=== PATIENT | female | born 1980 | race Caucasian/White ===

== ENCOUNTER 2019-05-20 11:08 | Observation (INO) | payer OTHER ==
[2019-05-20] MEDS ORDERED: Naproxen TAB* 250 MG ONE (12:34)
[2019-05-20] MEDS ORDERED: Scopolamine 1.5 mg* PATCH ONE (12:34)
[2019-05-20] MEDS ORDERED: Ondansetron INJ* 2 MG/ML VIAL ONE ×2 (12:34→15:55)
[2019-05-20] MEDS ORDERED: LORazepam TAB(*) 1 MG ONE (12:35)
[2019-05-20] MEDS ORDERED: oxyCODONE SR TAB(*) 10 MG TAB.SR ONE (12:35)
[2019-05-20] MEDS ORDERED: Clindamycin 900 MG/D5W BAG(*) 900 MG/50 ML BAG IVPB ONE (13:00)
[2019-05-20] MEDS ORDERED: Clindamycin 900 MG IVPREMIX(* 900 MG/50 ML SDV IV ONE (13:00)
[2019-05-20] MEDS ORDERED: Heparin 2 UNITS/ML IVPREMIX* 3,000 UNIT/1,500 ML BAG IV ONE (13:15)
[2019-05-20] MEDS ORDERED: Lidocaine 1% INJ* 10 MG/ML 30 ML SDV ONE (13:15)
[2019-05-20] MEDS ORDERED: Iohexol 350 (CONTRAST) 200 ML MDV IV ONE (13:15)
[2019-05-20] MEDS ORDERED: Heparin(*) 1000 UNIT/ML 10 ML VIAL CATH LAB IV ONE (13:26)
[2019-05-20] MEDS ORDERED: VERAPAMIL 2.5 MG/ML 2 ML VIAL ** 5 mg/2 ml ONE (13:26)
[2019-05-20] MEDS ORDERED: nitroGLYCERIN DRIP* 25,000 MCG/250 ML BTL ONE (13:26)
[2019-05-20] MEDS ORDERED: fentaNYL* 50 MCG/ML 2 ML VIAL (100 MCG VIAL) ONE ×3 (13:34→15:29)
[2019-05-20] MEDS ORDERED: Naloxone* 0.4 MG/ML 1 ML VIAL ONE (13:34)
[2019-05-20] MEDS ORDERED: Midazolam* 1 MG/ML 5 ML VIAL (5 MG) ONE (13:34)
[2019-05-20] MEDS ORDERED: Flumazenil* 0.1 MG/ML 5 ML MDV ONE (13:34)
[2019-05-20] MEDS ORDERED: Ketorolac INJ* 30 MG/ML 1 ML VIAL ONE ×3 (13:39→15:41)
[2019-05-20] MEDS ORDERED: HYDROmorphone PCA* 20 MG/20 ML PCA.SYRING PCA SCH (15:00)
[2019-05-20] MEDS ORDERED: HYDROmorphone PCA* 20 MG/20 ML PCA.SYRING ONE (15:46)
[2019-05-20] MEDS ORDERED: Ondansetron INJ* 2 MG/ML VIAL IV PRN (17:54)
[2019-05-20] MEDS ORDERED: Acetaminophen TAB* 325 MG PO PRN (17:54)
[2019-05-20] MEDS ORDERED: Lorazepam PYXIS KEY PRN (17:59)
[2019-05-20] MEDS ORDERED: Albuterol 2.5 MG/3 ML NEB.SOL* (0.083%) INH PRN (18:10)
[2019-05-20] MEDS ORDERED: NS 0.9% @ 50 MLS/HR IV SCH (19:30)
[2019-05-20] MEDS ORDERED: HYDROmorphone INJ1* 1 MG/ML SYRINGE IV SLOW PU PRN (19:51)
[2019-05-20] MEDS ORDERED: DOXYcycline IV* 100 MG in NS 0.9% 250 ML* 250 ML IVPB ONE (20:00)
[2019-05-20] MEDS: Ondansetron INJ* 2 MG/ML VIAL IV SCH (20:09)
[2019-05-20] MEDS: Ketorolac INJ* 15 MG/ML 1 ML VIAL IV PUSH SCH (20:10)
[2019-05-20] MEDS: LORazepam INJ* 2 MG/ML 1 ML VIAL IV PUSH SCH (20:21)
[2019-05-20] MEDS ORDERED: guanFACINE TAB* 1 MG PO SCH (21:00)
--- NOTE | 2019-05-20 23:55 | HP ---
CC: Dr. Elijah Salinas; Dr. Yoni Hoff * ADMISSION HISTORY AND PHYSICAL: DATE OF ADMISSION: 05/20/19 PRIMARY CARE PROVIDER: Dr. Elijah Salinas. MY ATTENDING WHILE IN THE HOSPITAL: Dr. Yecenia Jackson.* (DICTATED BY ANJEL BARAJAS) INTERVENTIONAL RADIOLOGIST: Dr. Yoni Hoff. CHIEF COMPLAINT: Uterine fibroid embolization. HISTORY OF PRESENT ILLNESS: Ms. Guzmán is a 38-year-old female with a past medical history significant for uterine fibroids, mild intermittent asthma, and endometritis, who is currently postoperative for a large uterine fibroid embolization. The patient was admitted and examined in the PACU. The patient is having severe pain, which she rates at 9/10 from her upper abdomen down to her symphysis pubis. She rates this as an aching pain and it is worse in certain spots in her abdomen, but is present all over. She denies fever, chills , chest pain, or shortness of breath. The patient had some nausea, vomiting, and some dizziness. The patient denies recent illnesses, diarrhea, or upper respiratory infection. The patient claims that she only drinks 2 drinks a week , though other reports put this at 5th of vodka every week. The patient was recently diagnosed with endometritis and prescribed doxycycline, which she is not started taking yet. The patient has moderate response to [employer], but is still in significant pain. [employer] brings her pain only down to 8/10. PAST MEDICAL HISTORY: Uterine fibroids, menometrorrhagia, endometritis, and intermittent asthma. PAST SURGICAL HISTORY: Ankle surgery. MEDICATIONS ON ADMISSION: 1. Multivitamin. 2. Guanfacine 1 mg p.o. at bedtime. 3. Dextroamphetamine/Amphetamine 1 cap p.o. daily. 3. Topiramate 50 mg p.o. b.i.d. 4. Epinephrine 0.3 mg IM once as needed for anaphylaxis. ALLERGIES: SULFA ANTIBIOTICS, wasp stings. FAMILY HISTORY: The patient's father is alive and has Parkinson's disease. The patient's mother had endometriosis and immune hyperplasia of the spleen around the same age as her daughter is now. SOCIAL HISTORY: The patient drinks occasional alcohol, again the amount of this differs, but varies between 5th of vodka and 2 drinks weekly. The patient smokes occasional marijuana and smokes approximately 4 cigarettes a day and has done so since the age of 16, she has recently cut down quite a bit. 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 The patient currently lives with her father. The patient's surrogate decision maker would be her mother. REVIEW OF SYSTEMS: A 14-point review of systems was reviewed and is negative except as above in the HPI. PHYSICAL EXAMINATION GENERAL: The patient is a 38-year-old female, who appears stated age, sitting in the bed, writhing in pain. VITAL SIGNS: At the time of evaluation, temperature 97.9, pulse rate 76, respiratory rate 18, oxygen saturation 98% on room air, blood pressure 160/120. HEENT: Head is normocephalic and atraumatic. Sclerae are anicteric. No conjunctival injection. Nasal mucosa moist. Oral mucosa moist. No pharyngeal erythema, discharge or exudate. NECK: Supple, nontender. No lymphadenopathy. No carotid bruit auscultated. No JVD. RESPIRATORY: Clear to auscultation bilaterally. No wheezes, rales, or rhonchi. Good air exchange bilaterally. CARDIAC: Regular rate and rhythm. No clicks, murmurs, gallops or rubs. Pulses 2+ in the bilateral dorsalis pedis, posterior tibial, and radial areas. ABDOMEN: Soft, tender to palpation throughout. No rebound or guarding. Bowel sounds present in all 4 quadrants. GENITOURINARY: Suprapubic tenderness present. No CVA tenderness. Vaginal exam deferred. SKIN: Left radial arterial puncture site without bleeding. NEUROLOGIC: Cranial nerves II through XII intact. No focal deficits. Alert and oriented x3. PSYCHIATRIC: Pleasant, cooperative. DIAGNOSTIC STUDIES/LAB DATA: Preoperative Lab Work: White blood cell count 10.8, hemoglobin 13.1, platelet count 146. INR 0.8, APTT 31.1. Sodium 138, potassium 3.7, chloride 107, carbon dioxide 23, anion gap 8, BUN 12, creatinine 0.78, glucose 105, calcium 9.2. ASSESSMENT AND PLAN: Impression: Ms. Guzmán is a 38-year-old female with a past medical history significant for uterine fibroids and asthma, who is currently status post uterine fibroid embolization and is in significant pain. 1. Uterine fibroid embolization. The patient will be co-managed with Dr. Yoni Hoff. The patient currently uses [employer] and 2 mg Dilaudid every 2 hours for breakthrough pain. The patient will also be given Toradol for her pain as well as Ativan for her pain and possible withdrawal syndrome. The patient will have nausea controlled with Zofran and we will add Compazine if needed. The patient had endometritis and has been covered with clindamycin by Dr. Yoni Hoff and then will have doxycycline per her outpatient provider's recommendation to cover for additional gram-negative organisms. 2. Mild intermittent asthma. PRN albuterol. 3. Possible alcohol abuse. It is very unlikely based on the patient's alcohol usage that she has withdrawal from alcohol; however, Ativan may help with her abdominal pain per Dr. Hoff and it will be given to obviate the chance of withdrawal syndrome. 4. FEN. The patient will have regular unrestricted diet when tolerated. The patient is currently hypertensive and does not require fluids. 5. DVT prophylaxis. SCDs. 6. Disposition. The patient will be admitted for observation. TIME SPENT: Approximately 60 minutes was spent on this admission, 30 of which was spent [id number] with the patient obtaining history and physical and discussing treatment plan. This plan was discussed with my attending, Dr. Yecenia Jackson, and she is in agreement. ANJEL BARAJAS [id number]/CPS #: [id number] MTDD
[2019-05-21] MEDS: Topiramate TAB(*) 25 MG PO SCH ×2 (01:15→09:18)
[2019-05-21] MEDS: Ondansetron INJ* 2 MG/ML VIAL IV SCH ×2 (03:27→09:07)
[2019-05-21] MEDS: Ketorolac INJ* 15 MG/ML 1 ML VIAL IV PUSH SCH ×2 (03:27→09:06)
[2019-05-21] MEDS: LORazepam INJ* 2 MG/ML 1 ML VIAL IV PUSH SCH (04:15)
[2019-05-21 07:52] VITALS: BP 115/68
--- NOTE | 2019-05-21 08:13 | PN ---
Progress Note - Progress Note Date of Service: 05/21/19 SOAP: Subjective: No emesis overnight. "Mild" episodes of nausea, but taking PO fluids and fruit overnight. + void. Pain ranges from 2/10-6/10 + Ambulating independently. Objective: Selected Entries 05/21/19 07:47 Temperature 98.3 F Pulse Rate 56 Respiratory 16 Rate Blood Pressure 115/68 (mmHg) Blood Pressure 83 Mean O2 Sat by Pulse 98 Oximetry NAD, AAO x 3 Left radial arteriotomy site is soft, NT with small amount of dry blood beneath Tegaderm 2+ pulse at left radial Motor function of left hand and wrist is grossly intact Sensation intact at left hand radial, median and ulnar nerve dermatomes Minimal tenderness with palpation over midline suprapubic area. No rebound. No guarding. Assessment: 38 YOF POD #1 s/p Uterine Fibroid Arterial Embolization from a left radial arteriotomy. Pain and nausea are well controlled. Plan: 1. Camp breakfast tray. 2. Transition IV to PO medications. 3. Encourage ambulation. 4. Discharge medications will include: Toradol 10 mg PO Q 6 hours x 3 days (Dispense #15 with one refill) AFTER Toradol is complete: Ibuprofen 400 mg PO Q 6 hours OR Naprosyn 225 mg PO Q 8 hours for 3-5 days (do not take both) [place] 5/325, take 1 or 2 tablets by mouth Q 6 hours PRN breakthrough pain ( Dispense #40) Zofran 4 mg PO Q 6 hours x 7 days (Dispense #30 with one refill) Scopolamine 1.5 mg transdermal to mastoid process. On 05/23/19 at 900 AM, remove current patch, replace with new patch and wear x 3 days. Drink one cup of laxative tea daily (For example, "Smooth Move") for one week.
[2019-05-21] MEDS ORDERED: HYDROcodone/ACETAMIN 5-325 MG* 1 TAB PO PRN (08:33)
[2019-05-21] MEDS ORDERED: Ketorolac TAB * 10 MG TAB PO SCH (09:00)
[2019-05-21] MEDS ORDERED: Prenatal Vitamin TAB PO SCH (09:00)
[2019-05-21] MEDS ORDERED: DOXYcycline CAP(*) 100 MG PO SCH (09:00)
[2019-05-21] MEDS ORDERED: Amphetamine/Dextroamph ER(NF) 10 MG CAP.ER PO SCH (09:00)
[2019-05-21] MEDS ORDERED: Ondansetron TAB* 4 MG PO SCH (09:00)
[2019-05-21] MEDS ORDERED: LORazepam TAB(*) 1 MG PO SCH (12:00)
--- NOTE | 2019-05-21 23:58 | DS ---
CC: Dr. Elijah Salinas; Dr. Yoni Hoff * DISCHARGE SUMMARY: DATE OF ADMISSION: 05/20/19 DATE OF DISCHARGE: 05/21/19 PRIMARY CARE PROVIDER: Dr. Elijah Salinas MY ATTENDING WHILE IN THE HOSPITAL: Dr. Yecenia Jackson.* (DICTATED BY ANJEL BARAJAS) PRIMARY DISCHARGE DIAGNOSIS: Uterine fibroid embolization. SECONDARY DISCHARGE DIAGNOSES: 1. Menometrorrhagia. 2. Endometritis 3. Mild intermittent asthma. STUDIES DONE WHILE IN THE HOSPITAL: None. MEDICATIONS AT DISCHARGE: 1. Multivitamin 1 tablet daily. 2. Guanfacine 1 mg p.o. at bedtime. 3. Dextroamphetamine/amphetamine 10 mg 1 cap p.o. daily. 3. Topiramate 50 mg p.o. b.i.d. 4. Epinephrine 0.3 mg IJ once as needed for anaphylaxis. 5. Doxycycline 100 mg p.o. b.i.d. 6. Hydrocodone/acetaminophen 5/325 one to two tabs p.o. q. 6 hours as needed x 40 tabs. 7. Toradol 10 mg p.o. q.6 hours x15 tabs followed by ibuprofen 400 mg q. 6 hours as needed for pain. 8. Zofran 4 mg p.o. q.6 hours x7 days. 9. Scopolamine 1 patch q.72 hours x1. 10. Lorazepam 1 mg p.o. q.6 hours as needed for agitation or pain. New medication at discharge 1. [place]. 2. Toradol. 3. Zofran. 4. Scopolamine. 5. Lorazepam. Medications discontinued at discharge: None. HOSPITAL COURSE: This is a brief summary of the patient's presentation. For more details, please see history and physical from this author on 05/20/19. In brief, the patient is a 38-year-old female who had a history of painful uterine fibroids with heavy painful periods, who underwent an elective uterine fibroid embolization on 05/20/19. The patient's procedure went uneventfully. The patient was diagnosed with endometritis before her admission and was prescribed doxycycline which she did not take any doses of. The patient initially had a severe amount of pain which was controlled with [employer], Toradol, and diminished quickly. The patient was given IV doxycycline; when she was able to tolerate oral medication she was transitioned to oral doxycycline, oral pain medications , and had significant improvement in her pain on the morning of 05/21/19. The patient was continued on her home medications. The patient's pain was approximately 2 to 6 depending on her activity level. On 05/21/19 in the afternoon, the patient had no bloody or foul smelling vaginal discharge. She was given clindamycin. The patient remained stable and amenable for discharge and cleared for discharge by Dr. Yoni Hoff on 05/21/19. PHYSICAL EXAMINATION ON DISCHARGE: General: The patient is a 38-year-old female who appears her stated age and sitting comfortably in bed, in no acute distress. Vital Signs: Temperature 98.3, pulse rate 66, respiratory rate 16, oxygen saturation 90% on room air, and blood pressure 115/68. HEENT: Head: Normocephalic and atraumatic. Sclerae anicteric. No conjunctival injection. Nasal mucosa moist. Oral mucosa moist. No pharyngeal erythema, discharge, or exudate. Neck: Supple and nontender. No lymphadenopathy. No carotid bruit auscultated. No JVD. Cardiac: Regular rate and rhythm. No clicks, murmurs, gallops, or rubs. Pulses 2+ in the bilateral dorsalis pedis, posterior tibialis and radial areas. Respiratory: Clear to auscultation bilaterally. No wheezes, rales, or rhonchi. Good air exchange bilaterally. Abdomen: Soft. Tender to palpation in the bilateral lower quadrants. No rebound or guarding. Genitourinary: No suprapubic or CVA tenderness. Rectal exam not done at this time. Neuro: Cranial nerves II through XII intact. No focal deficits. Alert and oriented x3. Psychiatric: Pleasant and cooperative. DISCHARGE PLAN: The patient will be discharged to home. The patient should follow medications regimen as above, which detailed medication instructions have been included with her discharge pocket. The patient should avoid strenuous activity, pelvic rest, tampons and other activities outlined in her discharge pocket, until she is able to follow up with Dr. Hoff. The patient should resume her normal diet. The patient should take laxative tea. The patient should return to the hospital for high fevers, foul smelling or copious bloody vaginal discharge, bleeding from her puncture site, or other alarming symptoms. The patient should follow up with Dr. Hoff and her primary care provider and primary lane attendant as instructed. TIME SPENT: Approximately 45 minutes was spent on the discharge of this patient , 30 of which were spent [id number] with the patient obtaining history and physical and discussing treatment plan. ANJEL BARAJAS [id number] #: [id number] [place]
== END 2019-05-21 11:50 | disposition home or self-care (01) ==
LOC: CHICATH 11:08 → SSU 19:21 → INTOOBSV 19:21
PROVIDERS: ADMIT Radiology Diagnostic Radiology; ATTEND Radiology Diagnostic Radiology
DX: D25.9 Leiomyoma of uterus, unspecified (principal); N92.1 Excessive and frequent menstruation with irregular cycle; N71.9 Inflammatory disease of uterus, unspecified; J45.20 Mild intermittent asthma, uncomplicated; Z79.899 Other long term (current) drug therapy; Z88.2 Allergy status to sulfonamides; F17.210 Nicotine dependence, cigarettes, uncomplicated
CPT/HCPCS: 36415; 37243; 75625; 75736; 76937; 84702; 96374; 96375; 99156; 99157; A9270-GY; C1769; C1884; C1887; G0378; J1170; J1644; J1885; J2060; J2250; J2310; J2405; J3010